=== PATIENT | male | born 1960 | race Two or more races ===

== ENCOUNTER 2024-08-10 18:30 | Emergency (ER) | payer MEDICAID, SELFPAY ==
[2024-08-10 19:34] VITALS: BP 177/99; PULSE 95; RESP 18; TEMP 36.9; O2SAT 98
--- NOTE | 2024-08-10 19:39 | PD.EDRME ---
Rapid Medical Screening Exam RME Arrival date/time: 08/10/24 18:30 Chief Complaint: Back Pain/Injury Time Seen by Provider: 08/10/24 19:34 Vital signs: Vital Signs Temperature 98.5 F 08/10/24 19:34 Pulse Rate 95 08/10/24 19:34 Respiratory Rate 18 08/10/24 19:34 Blood Pressure 177/99 H 08/10/24 19:34 Pulse Oximetry (%) 98 08/10/24 19:34 Oxygen Delivery Method Room Air 08/10/24 19:34 Vital signs reviewed by provider: Yes RME Narrative: 63-year-old, Jordanian-speaking male presents to the ED with a complaint of right flank pain for the past 3 to 4 hours with associated nausea but no vomiting. He has a past medical history of renal calculi with his last attack being 1 year ago. He denies any fever or chills, diarrhea or constipation. I have greeted and performed a focused initial assessment of this patient. A comprehensive ED assessment and evaluation of the patient, analysis of all test results, and completion of the medical decision making process will be conducted by additional ED providers.
--- NOTE | 2024-08-10 19:41 | XR_ITS ---
Examination: CT abdomen and pelvis without contrast. Coronal 3-D reconstructions. Sagittal 2-D reconstructions. Date and time of exam:August 10, 20241958 hours COMPARISON: October 13, 2022 INDICATIONS: Right-sided flank pain today, history kidney stones CTDI: vol (mGy): 12.2 DLP: (mGycm): 796 Technique: Axial images of the abdomen have been obtained, 3 mm slice thickness Intravenous contrast material has not been administered. Low dose protocols were performed. One or more of the following dose reduction techniques were used; automated exposure control, adjustment of the mA and/or KV according to patient size, use of iterative reconstruction technique. Findings: Diffuse fatty infiltration throughout the liver No gallstones No pancreatic mass 2 mm right renal calculus Mild right hydronephrosis secondary to 13 mm proximal right ureteral calculus No bowel obstruction No bladder mass or bladder calculi Prostate calcifications Osseous structures intact IMPRESSION: Mild right hydronephrosis secondary to 13 mm proximal right ureteral calculus
[2024-08-10 20:23] LABS: Basophils # (Auto) 0.1 Thou/mm3 (0.0-0.2); Basophils % (Auto) 1 % (0-2.5); Eosinophils # (Auto) 0.2 Thou/mm3 (0.0-0.5); Eosinophils % (Auto) 2 % (0-10); Hematocrit 42.3 % (41.0-53.0); Hemoglobin 15.2 g/dL (13.5-16.0); Immature Granulocytes % (Auto) 0 % (0-0); Immature Granulocytes Auto 0.03 Thou/mm3 (0.00-0.00); Lymphocytes # (Auto) 1.6 Thou/mm3 (1.0-4.8); Lymphocytes % (Auto) 14 % (10-50); Mean Corpuscular HGB Conc 35.9 g/dl (31.0-37.0); Mean Corpuscular Volume 86 fL (80-100); Monocytes # (Auto) 0.6 Thou/mm3 (0.0-0.8); Monocytes % (Auto) 5 % (0-12); Neutrophils # (Auto) 9.5 Thou/mm3 (1.8-7.7); Neutrophils % (Auto) 79 % (37-80); Nucleated Red Blood Cell % 0 /100 WBC (0); Platelet Count 234 Thou/mm3 (140-440)
[2024-08-10 20:53] LABS: Alanine Aminotransferase 36 U/L (10-49); Albumin, Serum 4.9 gm/dL (3.4-4.8); Albumin/Globulin Ratio 1.6 (1.2-2.2); Alkaline Phosphatase 113 U/L (46-116); Anion Gap 10 (7-16); Aspartate Amino Transferase 32 U/L (0-34); BUN/Creatinine Ratio 9 Ratio (12-20); Bilirubin,Total 0.8 mg/dL (0.3-1.2); Blood Urea Nitrogen 12 mg/dL (9-23); Calcium 8.9 mg/dL (8.3-10.6); Calcium (Corrected) 8.9 mg/dL (8.5-10.1); Carbon Dioxide 27.3 mMol/L (20.0-31.0); Chloride 101 mMol/L (98-107); Creatinine (Component) 1.3 mg/dL (0.6-1.3); Glucose 152 mg/dL (74-106); Lipase 64 U/L (12-53); Osmolality,Calculated 278 (275-295); Potassium 4.4 mMol/L (3.4-5.1); Sodium 138 mMol/L (136-145); Total Protein 7.9 gm/dL (5.7-8.2); eGFR > 60 See Note
[2024-08-10 21:40] LABS: Collection Type, Urine Clean Catch
[2024-08-10 22:00] LABS: Bilirubin,Urine Negative (Negative); Blood,Urine 3+ (Negative); Clarity,Urine Clear (Clear/Hazy); Color,Urine Yellow (Lt Yel-Yel); Glucose, Urine Negative (Negative); Ketones,Urine Trace (Negative); Leukocyte Esterase,Urine Negative (Negative); Nitrite,Urine Negative (Negative); PH,Urine 5.5 (5.0-7.0); Protein,Urine Trace (Neg - Trace); RBC,Urine 214 /hpf (0-3); Specific Gravity,Urine 1.023 (1.001-1.035); Squamous Epithelial Cell,Urine < 1 /hpf (0-5); Urobilinogen,Urine Negative mg/dL (0.0-1.0); WBC,Urine 5 /hpf (0-5)
--- NOTE | 2024-10-05 21:15 | EDNOTE_ITS ---
ED General RME/HPI General Chief complaint: Back Pain/Injury Stated complaint: RIGHT FLANK PAIN Time Seen by Provider: 08/10/24 19:34 Arrival date/time: 08/10/24 18:30 RME / HPI RME / HPI narrative: 63-year-old, Luxembourgish-speaking male presents to the ED with a complaint of right flank pain for the past 3 to 4 hours with associated nausea but no vomiting. He has a past medical history of renal calculi with his last exacerbation being 1 year ago. He denies any fever or chills, diarrhea or constipation. Related Data Previous Rx's ?Medication ?Instructions ?Recorded tamsulosin 0.4 mg capsule (Flomax) 0.4 mg PO QDAY #10 caps 08/11/24 ciprofloxacin HCl 500 mg tablet 500 mg PO BID #14 tabs 09/06/24 (Cipro) hydrocodone 5 mg-acetaminophen 325 1 tab PO Q6H PRN pa in #30 tabs 09/06/24 mg tablet Allergies Allergy/AdvReac Type Severity Reaction Status Date / Time No Known Allergies Allergy Verified 09/05/24 06:50 Review of Systems Review of Systems Systems Reviewed: All systems reviewed, normal except as documented Past Medical History Past Medical History MUSCULOSKELETAL: Positive Fractures (broken nose 10 years ago per pt.) Social History SMOKING STATUS: Never smoker SUBSTANCE USE: does not use ALCOHOL: Never Past Medical History Comments PMH COMMENT: Previous history of renal calculi. ED Exam Narrative Physical exam: A&O, afebrile and non-toxic appearing 64-year-old male, no acute distress. Lung are clear, RRR, Abdomen is soft with right flank and right CVA tenderness. Non- distended. Moves all extremities well. Course Orders Category Date Time Status NPO STAT Care 08/10/24 19:[address] abdomen pelvis wo con Stat Exams 08/10/24 19:41 Completed CBC Stat Lab 08/10/24 20:12 Completed Comprehensive Metabolic Panel Stat Lab 08/10/24 20:12 Completed Lipase Stat Lab 08/10/24 20:12 Completed Urinalysis Stat Lab 08/10/24 21:08 Completed Urine Culture Stat Lab 08/10/24 21:08 Completed Vital Signs Vital signs: Vital Signs Temperature 98.5 F 08/10/24 19:34 Pulse Rate 95 08/10/24 19:34 Respiratory Rate 18 08/10/24 19:34 Blood Pressure 177/99 H 08/10/24 19:34 Pulse Oximetry (%) 98 08/10/24 19:34 Oxygen Delivery Method Room Air 08/10/24 19:34 Discharge Plan Plan Patient Disposition: HOME (Self Care) Discharge Disposition comment: Stable and improved Prescriptions/Referrals Prescriptions/Med Rec: New tamsulosin [Flomax] 0.4 mg capsule 0.4 mg PO QDAY Qty: 10 0RF No Action hydrocodone-acetaminophen 5-325 mg tablet 1 tab PO Q6H MDD 4 PRN (Reason: pain) Qty: 30 0RF ciprofloxacin HCl [Cipro] 500 mg tablet 500 mg PO BID Qty: 14 0RF Referrals: No Primary/Family,Physician [Primary Care Provider] - In 1 week Problem List Clinical Impression: Renal calculus, Renal colic on right side Patient/Caregiver Discharge Instructions Education Materials: ED Kidney Stone w/ Colic Additional Instructions: Contact your primary care physician's office on Monday morning for an urgent referral to the urologist. This kidney stone will need to have lithotripsy as you will not be able to pass the stone through the ureter. Follow-up with your primary care physician in 24 to 48 hours. Return to the ED for any new or worsening symptoms. Print Language: Luxembourgish Stand Alone Forms: Skylar Award Info., Patient Portal Info Letter PA/IMAN Supervising Physician YARELY/IMAN Supervising Physician: Dr. Mccann
== END 2024-08-11 00:22 | disposition home or self-care (01) ==
PROVIDERS: Physician Assistant; Emergency Provider Emergency Medicine
DX: N20.0 Calculus of kidney (principal)
CPT/HCPCS: 36415; 74176; 80053; 81001; 82150; 83690; 85025; 87086; 99284

== ENCOUNTER 2024-09-06 10:22 | Day surgery (SDC) | payer MEDICAID, SELFPAY ==
[2024-09-05 06:52] VITALS: BMI 35.4
--- NOTE | 2024-09-05 07:00 | EKG_ITS ---
[facility] Test Date: 2024-09-05 Pat Name: ROCÍO FAM Department: Room: - Gender: Male Seam Stayer: MAAME : 1960 Requested By: Luther Victoria Order Number: [id number] Reading MD: Luther Victoria Measurements Intervals [place] Rate: 60 P: 46 GA: 169 QRS: 30 QRSD: 103 T: 62 QT: 409 QTc: 409 Interpretive Statements SINUS RHYTHM WITH SINUS ARRHYTHMIA No previous ECG available for comparison /store/S0/[id number]/ecg/[id number].pdf
[2024-09-05 07:47] LABS: Collection Type, Urine Clean Catch; Squamous Epithelial Cell,Urine 0 /hpf (0-5)
[2024-09-05 08:22] LABS: Basophils # (Auto) 0.1 Thou/mm3 (0.0-0.2); Basophils % (Auto) 1 % (0-2.5); Eosinophils # (Auto) 0.2 Thou/mm3 (0.0-0.5); Eosinophils % (Auto) 4 % (0-10); Hematocrit 40.7 % (41.0-53.0); Immature Granulocytes % (Auto) 1 % (0-0); Immature Granulocytes Auto 0.05 Thou/mm3 (0.00-0.00); Lymphocytes # (Auto) 1.7 Thou/mm3 (1.0-4.8); Lymphocytes % (Auto) 27 % (10-50); Mean Corpuscular HGB Conc 34.4 g/dl (31.0-37.0); Mean Corpuscular Hemoglobin 31.2 pg (25.0-35.0); Mean Corpuscular Volume 91 fL (80-100); Monocytes # (Auto) 0.4 Thou/mm3 (0.0-0.8); Monocytes % (Auto) 6 % (0-12); Neutrophils # (Auto) 3.8 Thou/mm3 (1.8-7.7); Neutrophils % (Auto) 61 % (37-80); Nucleated Red Blood Cell % 0 /100 WBC (0); Platelet Count 208 Thou/mm3 (140-440); Red Blood Count 4.49 Miln/mm3 (4.50-5.90); White Blood Count 6.3 Thou/mm3 (3.8-10.6)
[2024-09-05 08:24] LABS: Bilirubin,Urine Negative (Negative); Blood,Urine Trace (Negative); Clarity,Urine Clear (Clear/Hazy); Color,Urine Colorless (Lt Yel-Yel); Culture Indicated,Urine Not Indicated; Glucose, Urine Negative (Negative); Ketones,Urine Negative (Negative); Leukocyte Esterase,Urine Negative (Negative); Nitrite,Urine Negative (Negative); Protein,Urine Negative (Neg - Trace); RBC,Urine < 1 /hpf (0-3); Specific Gravity,Urine 1.007 (1.001-1.035); Urobilinogen,Urine Negative mg/dL (0.0-1.0); WBC,Urine 2 /hpf (0-5)
[2024-09-05 08:44] LABS: Alanine Aminotransferase 30 U/L (10-49); Albumin, Serum 4.4 gm/dL (3.4-4.8); Alkaline Phosphatase 101 U/L (46-116); Anion Gap 6 (7-16); Aspartate Amino Transferase 22 U/L (0-34); BUN/Creatinine Ratio 14 Ratio (12-20); Bilirubin,Total 0.6 mg/dL (0.3-1.2); Blood Urea Nitrogen 13 mg/dL (9-23); Calcium 8.8 mg/dL (8.3-10.6); Calcium (Corrected) 8.8 mg/dL (8.5-10.1); Carbon Dioxide 29.3 mMol/L (20.0-31.0); Chloride 106 mMol/L (98-107); Creatinine (Component) 0.9 mg/dL (0.6-1.3); Estimated Creatinine Clearance 100.4 mL/min (>60); Globulin 2.2 gm/dL (2.3-3.5); Glucose 105 mg/dL (74-106); Osmolality,Calculated 281 (275-295); Potassium 4.4 mMol/L (3.4-5.1); Sodium 141 mMol/L (136-145); Total Protein 6.6 gm/dL (5.7-8.2); eGFR > 60 See Note
[2024-09-06] VITALS (8 sets, daily range): BP systolic 142–162; BP diastolic 79–103; PULSE 58–81; RESP 13–18; TEMP 36.6–37.1; O2SAT 93–96; BMI 34.9
--- NOTE | 2024-09-06 06:00 | XR_ITS ---
Examination: Abdomen AP single view Technique: AP portable supine abdomen, single view Exam date and time: September 06, 2024 1041 hours INDICATIONS: Preop lithotripsy, history flank pain, right hydronephrosis 13 mm proximal right ureteral calculus on CT stone study August 10, 2024. FINDINGS: 13 mm proximal right ureteral calculus Nonobstructive bowel gas pattern No free air IMPRESSION: 13 mm proximal right ureteral calculus
--- NOTE | 2024-09-06 07:40 | ESHP_ITS ---
RE: ROCÍO FAM : 1960 DATE OF ADMISSION: 09/05/2024 HISTORY OF PRESENT ILLNESS: The patient is a 63-year-old gentleman with a history of kidney stones. He has a right ureteral stone. He had a history of stones in the past. PAST SURGICAL HISTORY: The patient had appendectomy in the past and some surgery for his ulcer in the stomach. SOCIAL HISTORY: He has three children. ALLERGIES: None known. No history of diabetes mellitus. No history of high blood pressure. He is on tamsulosin. PHYSICAL EXAMINATION: HEENT: Normal. NECK: Supple. LUNGS: Clear. CARDIOVASCULAR: Heart sounds are normal. ABDOMEN: Soft. LABORATORY DATA: CT scan of the abdomen and pelvis revealed a 13 mm right UPJ stone, ureteropelvic junction stone. PLAN: The patient is scheduled to have cystoscopy, right ureteral stent insertion, and extracorporeal shock wave lithotripsy for right ureteral stone. Plan, procedure risks and complications have been discussed with the patient. The patient understood them and agreed to proceed. DT: 14:17:17 TT: 16:10:00 Ref: [id number] - TID: [id number]
--- NOTE | 2024-09-06 10:45 | SUR.PREOP ---
pt to imaging with Caroline STONE
--- NOTE | 2024-09-06 10:58 | SUR.PREOP ---
Patient expressed gratitude for prayer before their procedure.
--- NOTE | 2024-09-06 15:30 | SUR.PHASEI ---
pt received from OR in recovery bay 7. pt obtunded, breathing unlabored on oxymask 6l. v/s stable. report received from Tremayne STONE and Erasto BUCKLEY.
--- NOTE | 2024-09-06 15:38 | SUR.OPER ---
Power level: 8 3500 shocks Fluro time: 1 minute 50 seconds
[2024-09-06] MEDS: fentaNYL CIT INJ 50 mCg/ML AMP 2ML 25 MCG IVP (15:52)
[2024-09-06] MEDS: ALBUTEROL/IPRATROPIUM (Duoneb) RT SOL 3 ML NEBU INH (16:05)
--- NOTE | 2024-09-06 16:10 | SUR.PHASEII ---
pt able to tolerate oral fluids without difficultly swallowing or nausea/vomiting.
--- NOTE | 2024-09-06 16:41 | SUR.PHASEII ---
pt awake and alert, breathing unlabored on room air. v/s stable. pt able to ambulate to wheelchair with steady gait. d/c instructions given with daughter Miranda in room using projects manager Wesley huerta, all questions answered. pt d/c via wheelchair with all belongings.
--- NOTE | 2024-09-06 21:06 | ESOP_ITS ---
RE: ROCÍO FAM : 1960 DATE OF OPERATION: 09/06/2024 PREOPERATIVE DIAGNOSIS: Right upper ureteral 13 mm stone with obstruction and pain. POSTOPERATIVE DIAGNOSIS: Right upper ureteral 13 mm stone with obstruction and pain. PROCEDURES: Cystoscopy, right ureteral stent insertion and extracorporeal shock wave lithotripsy for right upper ureteral stone. ANESTHESIA: General. INDICATION: The patient is a 63-year-old male who was referred to pr with a history of right-sided flank pain. CT scan of the abdomen and pelvis revealed a right upper ureteral stone 13 mm in size with obstruction. The patient had continuous pain and now is scheduled to have a cystoscopy, right ureteral stent insertion, and extracorporeal shock wave lithotripsy for the right upper ureteral stone. Planned procedure, risks, and complications have been discussed with the patient. The patient understood them and agreed to proceed. DESCRIPTION OF PROCEDURE: After the patient was brought to the operating table under adequate general anesthesia and dorsal lithotomy position, parts were prepped and draped in the usual fashion. Cystoscopy was then carried out, which revealed adequate urethral meatus, normally appearing urethra. Moderately enlarged bilobed prostate. Scope was introduced into the bladder. There are no intravesical stones or tumors. Ureteral orifices are somewhat narrow, but in normal position. With the guidewire, an open-tip ureteral catheter was introduced into the right ureteral orifice and was advanced. It met an obstruction at the right upper ureteral level where the stone was located. With some manipulation, the guidewire was passed by the stone, above the stone into the right kidney. The stone seems to be quite obstructing type of stone. A 6-German x 26 cm stent was inserted over the guidewire, which is a Bard type of a stent. This was placed under C-arm fluoroscopy control so as the proximal loop of the stent is lying in the right kidney and the distal loop is in the bladder. The patient was positioned for lithotripsy with a Dornier Delta III lithotripsy machine, 3500 shocks were given to the stone to power level 9. The patient tolerated the entire procedure well and left the room in good condition. DT: 15:15:21 TT: 19:51:00 Ref: [id number] - TID: [id number]
== END 2024-09-06 16:41 | disposition home or self-care (01) ==
PROVIDERS: Anesthesiology; PCP Family Medicine; Referring Provider Surgery; Visit Provider Surgery
PROC: (CPT 50590; principal; 2024-09-06 12:30)
PROC: (CPT 52282; 2024-09-06 12:30)
DX: N20.1 Calculus of ureter (principal); Z87.442 Personal history of urinary calculi; Z90.49 Acquired absence of other specified parts of digestive tract; Z01.810 Encounter for preprocedural cardiovascular examination
CPT/HCPCS: 50590; 52332; 36415; 74018; 80053; 81001; 85025; 93005; A4217; A4649; A9270; C2617; J0694; J2704; J3010; J3490

== ENCOUNTER → 2024-10-03 | Outpatient (CLI) | payer MEDICAID, SELFPAY ==
--- NOTE | 2024-10-03 12:39 | XR_ITS ---
Examination: Abdomen AP single view Technique: AP portable supine abdomen, single view Exam date and time: October 03, 2024 1243 hours Post surgery one month ago with flank pain FINDINGS: Right ureteral stent satisfactory position 12 mm calculus adjacent to the proximal portion of the stent Small calculus 4 mm overlying the lower pole right kidney IMPRESSION: Right ureteral stent satisfactory position 12 mm calculus adjacent to the proximal portion of the right ureteral stent
== END | disposition home or self-care (01) ==
LOC: CDIM 12:21
PROVIDERS: PCP Family Medicine; Referring Provider Surgery; Visit Provider Surgery
DX: N20.0 Calculus of kidney (principal)
CPT/HCPCS: 74018

== ENCOUNTER 2024-11-22 17:49 | Emergency (ER) | payer MEDICAID, SELFPAY ==
[2024-11-22 19:47] VITALS: BP 187/90; BP 192/92; PULSE 85; RESP 20; TEMP 37; O2SAT 96
--- NOTE | 2024-11-22 20:07 | PD.EDMALE ---
ED Male Genitalurinary RME/HPI General Chief complaint: Urogenital-Male Stated complaint: DYSURIA X 3 DAYS Time Seen by Provider: 11/22/24 20:04 Arrival date/time: 11/22/24 17:49 64M with history of recent kidney stones and Nuñez cath removal several days ago presents to ED with some pulsating pain in penis. Patient states he was cleared by urologist in terms of no more stones. Patient denies dysuria/hematuria, flank pain, and N/V. Patient is able to urinate w/o issue. Limitations: no limitations Related Data Previous Rx's ?Medication ?Instructions ?Recorded tamsulosin 0.4 mg capsule (Flomax) 0.4 mg PO QDAY #10 caps 08/11/24 ciprofloxacin HCl 500 mg tablet 500 mg PO BID #14 tabs 09/06/24 (Cipro) hydrocodone 5 mg-acetaminophen 325 1 tab PO Q6H PRN pain #30 tabs 09/06/24 mg tablet Allergies Allergy/AdvReac Type Severity Reaction Status Date / Time No Known Allergies Allergy Verified 11/22/24 17:51 Past Medical History Past Medical History NEUROLOGIC: Negative Neurological Disorders or Seizures CARDIAC: Negative Cardiac Disorders or Congestive Heart Failure RESPIRATORY: Negative Chronic Obstructive Pulmonary Disease (COPD), Asthma or Sleep Apnea GASTROINTESTINAL: Positive Gastrointestinal Disorders, Gastrointestinal Bleed (2021- bleeding ulcer) and Ulcer (in the past); Negative Hepatitis GENITOURINARY: Positive Genitourinary Disorders and Kidney Stones; Negative Renal Disease MUSCULOSKELETAL: Positive Musculoskeletal Disorders and Arthritis (right knee swollen); Negative Fractures ENDOCRINE: Negative Endocrine Disorders, Diabetes Mellitus Type 1 or Diabetes Mellitus Type 2 HEMATOLOGIC: Negative Blood Disorders or Sickle Cell Disease OTHER HISTORY: Negative Falls, Anesthesia Reactions or Cancer Social History SMOKING STATUS: Never smoker SUBSTANCE USE: does not use ED Exam General Limitations: Present no limitations General appearance: Present alert and in no apparent distress Head Head exam: Present atraumatic Eye Eye exam: Present normal appearance, PERRL and EOMI ENT ENT exam: Present normal exam, normal oropharynx and mucous membranes moist Neck Neck exam: Present normal inspection, full ROM and trachea midline Chest Chest inspection: Present normal inspection and symmetric chest wall rise Respiratory Respiratory exam: Present normal lung sounds bilaterally Cardiovascular Cardiovascular exam: Present regular rate, normal rhythm and normal heart sounds Abdominal Exam Abdominal exam: Present soft and normal bowel sounds Extremities Exam Extremities exam: Present normal inspection and full ROM Back Exam Back exam: Present normal inspection and full ROM Neurological Exam Neurological exam: Present alert, oriented X3 and CN II-XII intact Psychiatric Psychiatric exam: Present normal affect and normal mood Skin Skin exam: Present warm, dry, intact and normal color Course Quality Measures none Orders Category Date Time Status Urinalysis, C/S if Indicated Stat Lab 11/22/24 20:15 Completed Naproxen [Naprosyn] Med 11/22/24 20:04 Discontinued 500 mg PO X1 ONE Vital Signs Vital signs: Vital Signs Temperature 98.6 F 11/22/24 19:47 Pulse Rate 85 11/22/24 19:47 Respiratory Rate 20 11/22/24 19:47 Blood Pressure 192/92 H 11/22/24 19:47 Pulse Oximetry (%) 96 11/22/24 19:47 Oxygen Delivery Method Room Air 11/22/24 19:47 O2 at 96% on RA and WNLs Urogenital - Male MDM Narrative MDM Narrative:: 64M with history of recent kidney stones and Nuñez cath removal several days ago presents to ED with some pulsating pain in penis. Patient states he was cleared by urologist in terms of no more stones. Patient denies dysuria/hematuria, flank pain, and N/V. Patient is able to urinate w/o issue. Physical exam reveals well-appearing male. Patient is afebrile, calm, and alert. UA minimal blood. Meds and intellectual property counsel given. Patient data External records reviewed:: [facility] previous records Clinical information provided by:: patient Social determinants that could affect healthcare access:: none Patient has the following chronic illnesses:: none How is presenting disease/condition affected by chronic disease/condition?: no chronic disease Evaluation data The following diagnostics were reviewed and interpreted by me:: lab results Lab and/or radiology exams considered but not ordered:: ordered Interpretation Summary: above Medications / Prescriptions Medications or Prescriptions considered but not ordered:: ordered Medication administrations:: Medication Administration History Discontinued Medications Naproxen (Naproxen 250 Mg Tablet) 500 mg PO X1 ONE Stop: 11/22/24 20:05 Last Admin: 11/22/24 20:26 Dose: 500 mg Documented By: above Consultations Consultation(s) initiated? (list below): No Diagnosis Urogenital Male Differential Diagnosis: urinary tract infection, priapism, urethritis, epididymitis, genital herpes simplex, prostatitis, acute retention of urine, inguinal hernia and other (dysuria) Most likely diagnosis given after review of the tests above:: dysuria Admission Indicated Admission indicated?: not indicated Admission Request Was there a request for admission?: No Disposition Plan Disposition Plan: Discharge Discharge Attestation Discharge Attestation: The patient and all family members were given an opportunity to ask questions and understood the discharge instructions. Discharge instructions specifically effects, indications for sooner follow up or return to the emergency department, and the expected course of current diagnosis. Patient condition: Stable Discharge Plan Plan Patient Disposition: HOME (Self Care) Discharge Disposition comment: Stable Prescriptions/Referrals Prescriptions/Med Rec: No Action tamsulosin [Flomax] 0.4 mg capsule 0.4 mg PO QDAY Qty: 10 0RF hydrocodone-acetaminophen 5-325 mg tablet 1 tab PO Q6H MDD 4 PRN (Reason: pain) Qty: 30 0RF ciprofloxacin HCl [Cipro] 500 mg tablet 500 mg PO BID Qty: 14 0RF Problem List Clinical Impression: Dysuria Patient/Caregiver Discharge Instructions Education Materials: ED Dysuria, Uncertain Cause (Adult) Additional Instructions: Please follow-up with PCP within 24-48 hours and return immediately if symptoms worsen. NSAIDs like ibuprofen tend to work better for this type of pain. Print Language: B[place]udian Stand Alone Forms: Patient Portal Info Letter YARELY/IMAN Supervising Physician YARELY/IMAN Supervising Physician: Dr. Felix
[2024-11-22 20:19] LABS: Collection Type, Urine Clean Catch
[2024-11-22] MEDS: NAPROXEN 250 MG TABLET 500 MG PO (20:26)
[2024-11-22 20:27] LABS: Bilirubin,Urine Negative (Negative); Blood,Urine Negative (Negative); Clarity,Urine Clear (Clear/Hazy); Color,Urine Colorless (Lt Yel-Yel); Culture Indicated,Urine Not Indicated; Glucose, Urine Negative (Negative); Ketones,Urine Negative (Negative); Leukocyte Esterase,Urine Negative (Negative); Nitrite,Urine Negative (Negative); PH,Urine 7.5 (5.0-7.0); Protein,Urine Negative (Neg - Trace); RBC,Urine 10 /hpf (0-3); Specific Gravity,Urine 1.012 (1.001-1.035); Squamous Epithelial Cell,Urine < 1 /hpf (0-5); Urobilinogen,Urine Negative mg/dL (0.0-1.0); WBC,Urine < 1 /hpf (0-5)
[2024-11-22 20:48] VITALS: RESP 16
== END 2024-11-22 20:48 | disposition home or self-care (01) ==
LOC: SERX 21:03
PROVIDERS: Physician Assistant; Emergency Provider Emergency Medicine
DX: R30.0 Dysuria (principal); Z87.442 Personal history of urinary calculi
CPT/HCPCS: 81001; 99282; A9270